=== PATIENT | female | born 1995 | race Caucasian/White ===

== ENCOUNTER 2016-04-28 08:34 | Emergency (ER) | payer OTHER ==
[~2016-04-28 08:34] MED LIST: ACET50TA PO; ANUS2.5C2 TOP; DOCU10ELUD PO; IBUP600T26 PO; MOM30SS PO; PRENTAB74 PO
[2016-04-28] MEDS ORDERED: ALBUTEROL 90 MCG/ACT 8GM HFA INHALER As Ordered ONE (08:48)
--- NOTE | 2016-04-28 09:06 | EDDOCDS ---
Nurse's Notes [facility] Name: Ankita Barlow Age: 20 yrs Sex: Female : 1995 Arrival Date: 04/28/2016 Time: 08:34 Bed I5 / M5 Private MD: Diagnosis: Acute upper respiratory infections of multiple and unspecified sites;Acute bronchitis Presentation: 04/28 08:38 Presenting complaint: Patient states: Sore throat with cough began two days ago. Adult mlb1 Sepsis Screening: The patient does not have new or worsening altered mentation. Patient's respiratory rate is less than 22. Systolic blood pressure is greater than 100. Patient has a qSOFA score of 0- Negative Sepsis Screen. Suicide/Homicide risk assessment- the patient denies having any suicidal and/or homicidal ideations and does not present with any other emotional, behavioral or mental health complaints. Status: Patient is not a relocation services specialist or dependent. Transition of care: patient was not received from another setting of care. 08:38 Acuity: SUZIE Level 4 mlb1 08:38 Method Of Arrival: Walkin/Carried/Asstd mlb1 Triage Assessment: 08:39 General: Appears in no apparent distress, Behavior is appropriate for age, cooperative. mlb1 Pain: Location: throat chest Pain currently is 4 out of 10 on a pain scale. HIV screening NA for this visit Offered previously. Respiratory: Reports cough that is persistent. 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 BCP Oral 1 tab once daily - PMHx: Asthma; - PSHx: none; - Social history: Smoking status: Patient uses tobacco products, light tobacco smoker. No barriers to communication noted, The patient speaks fluent Tunisian, Speaks appropriately for age. - Family history: Not pertinent. - : The pt / caregiver states he / she is not on anticoagulants. Home medication list is obtained from the patient. - Exposure Risk Screening:: None identified. Screenin:48 Screening information is obtained from the patient. Fall risk: No risks identified. ck1 Assistance ADL's: requires no assistance with activities of daily living. Abuse/DV Screen: The patient / caregiver reports he/she is: not in a situation that causes fear, pain or injury. Nutritional screening: No deficits noted. Advance Directives: Currently, there is no health care proxy. home support is adequate. Assessment: 08:48 General: Appears in no apparent distress, comfortable, Behavior is appropriate for age, ck1 cooperative. Pain: Location: chest Pain currently is 4 out of 10 on a pain scale. Aggravated by cough. Respiratory: Respiratory effort is unlabored, Respiratory pattern is regular, symmetrical. Derm: Skin is intact, is healthy with good turgor, Skin is pink, warm & dry. Musculoskeletal: Circulation, motion, and sensation intact Range of motion intact in all extremities. 09:05 Reassessment: Patient appears in no apparent distress at this time. Neurological: No ck1 deficits noted. Respiratory: Airway is patent Respiratory effort is unlabored, Respiratory pattern is regular, symmetrical. Derm: Skin is intact, is healthy with good turgor, Skin is pink, warm & dry. Vital Signs: 08:40 BP 151 / 87; Pulse 108; Resp 18; Temp 98.0(TE); Pulse Ox 99% on R/A; Weight 89.36 kg mlb1 (R); Height 5 ft. 2 in. (157.48 cm) (R); Pain 4/10; 08:40 Body Mass Index 36.03 (89.36 kg, 157.48 cm) mlb1 Vitals: 08:40 Log In Time: April 28, 2016 at 08:33. mlb1 08:53 Strep Screen is obtained and tested: Negative, a GATSNEG culture is ordered in [place] [address] and sent. ED Course: 08:35 Patient visited by Anderson Crump. mm15 08:35 Patient moved to Waiting mm15 08:37 Patient visited by Kalin Alaniz RN. mlb1 08:38 Triage Initiated mlb1 08:40 Noam Aden PA-C is PHCP. cc10 08:40 Michael Thompson MD is Attending Physician. cc10 08:40 Patient visited by Kalin Alaniz RN. mlb1 08:40 Patient moved to I5 / M5 mlb1 08:41 Patient visited by Noam Aden PA-C. cc10 08:41 Patient visited by Noam Aden PA-C. cc10 08:48 The patient / caregiver is instructed regarding the plan of care and ED course. ck1 08:48 No IV's were initiated during this patient's visit. No procedures done that require ck1 assistance. 08:55 GATS (NEGATIVE STREP SCREEN) Sent. ck1 Administered Medications: 08:53 Drug: Ventolin 2 puffs [Ventolin HFA 90 mcg/actuation aerosol inhaler (2 puffs)] Route: sd7 Inhalation; RT: 08:53 Initial MDI Given. Patient was instructed and evaluated on procedure Patient tolerated sd7 procedure well without adverse effect Spacer used Number of puffs given: 2. Order Results: There are currently no results for this order. Outcome: 09:00 Discharge ordered by Provider. cc10 09:05 Discharge Assessment: Patient awake, alert and oriented x 3. No cognitive and/or ck1 functional deficits noted. Patient verbalized understanding of disposition instructions. patient administered narcotics - no. The following High Risk Discharge criteria are identified: None. Discharged to home ambulatory. Condition: stable. Discharge instructions given to patient, Instructed on discharge instructions, follow up and referral plans. medication usage, Demonstrated understanding of instructions, medications, Pt was receptive of discharge instructions/ teaching. Prescriptions given X 1, Work note provided to patient. No special radiology studies were completed. Property :Personal belongings accompany Pt. 09:05 Patient left the ED. ck1 Signatures: Kalin Alaniz RN RN mlb1 Raina Tesfaye RN RN ck1 Anderson Crump mm15 Noam Aden, PA-C PA-C cc10 Veena Landin,RT RT sd7 MTDD
--- NOTE | 2016-04-28 09:06 | EDDOCDS ---
Physician Documentation [facility] Name: Ankita Barlow Age: 20 yrs Sex: Female : 1995 Arrival Date: 04/28/2016 Time: 08:34 Bed I5 / M5 Private MD: Disposition: 04/28/16 09:00 Discharged to Home/Self Care. Impression: Acute upper respiratory infections of multiple and unspecified sites, Acute bronchitis. - Condition is Stable. - Discharge Instructions: Acute Bronchitis, Upper Respiratory Infection, Adult. - Prescriptions for Prednisone 20 mg Oral Tablet - take 1 tablet by ORAL route once daily for 5 days; 5 tablet. - Medication Reconciliation, Work Release Form - 2 day form. - Follow up: Emergency Department; When: As needed; Reason: Worsening of conditions. Follow up: Private Physician; When: Call to arrange an appointment; Reason: Wound/Symptom Recheck, Recheck today's complaints, Worsening of conditions, Continuance of care. - Problem is new. - Symptoms have improved. - Notes: May use your Albuterol, 2 puffs every 4 hours as needed. Historical: - Allergies: Latex; peanut oil; - Home Meds: 1. BCP Oral 1 tab once daily - PMHx: Asthma; - PSHx: none; - Social history: Smoking status: Patient uses tobacco products, light tobacco smoker. No barriers to communication noted, The patient speaks fluent Jordanian, Speaks appropriately for age. - Family history: Not pertinent. - : The pt / caregiver states he / she is not on anticoagulants. Home medication list is obtained from the patient. - Exposure Risk Screening:: None identified. 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 2 in. (157.48 cm) (R); Pain 4/10; 08:40 Body Mass Index 36.03 (89.36 kg, 157.48 cm) mlb1 MDM: 08:45 Strep Screen, Nursing ordered. cc10 08:45 Call Respiratory ordered. cc10 08:45 MDI teaching with Spacer ordered. cc10 08:45 Ventolin Inhaler 2 puffs Inhalation once ordered. cc10 08:50 Call Respiratory complete. ck1 08:54 GATS (NEGATIVE STREP SCREEN) Ordered. EDMS 09:04 Financial registration complete. mm15 Administered Medications: 08:53 Drug: Ventolin 2 puffs [Ventolin HFA 90 mcg/actuation aerosol inhaler (2 puffs)] Route: sd7 Inhalation; Signatures: Dispatcher [employer] EDME Kalin Alaniz RN RN mlb1 Raina Tesfaye RN RN ck1 Anderson Crump mm15 Noam Aden PA-C PA-Luis Eduardo cc10 [facility] sd[facility] MTDD
--- NOTE | 2016-04-30 10:07 | EDDOCDS ---
Physician Documentation [facility] Name: Ankita Barlow Age: 20 yrs Sex: Female : 1995 Arrival Date: 04/28/2016 Time: 08:34 Bed I5 / M5 Private MD: Disposition: 04/28/16 09:00 Discharged to Home/Self Care. Impression: Acute upper respiratory infections of multiple and unspecified sites, Acute bronchitis. - Condition is Stable. - Discharge Instructions: Acute Bronchitis, Upper Respiratory Infection, Adult. - Prescriptions for Prednisone 20 mg Oral Tablet - take 1 tablet by ORAL route once daily for 5 days; 5 tablet. - Medication Reconciliation, Work Release Form - 2 day form. - Follow up: Emergency Department; When: As needed; Reason: Worsening of conditions. Follow up: Private Physician; When: Call to arrange an appointment; Reason: Wound/Symptom Recheck, Recheck today's complaints, Worsening of conditions, Continuance of care. - Problem is new. - Symptoms have improved. - Notes: May use your Albuterol, 2 puffs every 4 hours as needed. Historical: - Allergies: Latex; peanut oil; - Home Meds: 1. BCP Oral 1 tab once daily - PMHx: Asthma; - PSHx: none; - Social history: Smoking status: Patient uses tobacco products, light tobacco smoker. No barriers to communication noted, The patient speaks fluent Ecuadorean, Speaks appropriately for age. - Family history: Not pertinent. - : The pt / caregiver states he / she is not on anticoagulants. Home medication list is obtained from the patient. - Exposure Risk Screening:: None identified. 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 2 in. (157.48 cm) (R); Pain 4/10; 08:40 Body Mass Index 36.03 (89.36 kg, 157.48 cm) mlb1 MDM: 08:45 Strep Screen, Nursing ordered. cc10 08:45 Call Respiratory ordered. cc10 08:45 MDI teaching with Spacer ordered. cc10 08:45 Ventolin Inhaler 2 puffs Inhalation once ordered. cc10 08:50 Call Respiratory complete. ck1 08:54 GATS (NEGATIVE STREP SCREEN) Ordered. EDMS 09:04 Financial registration complete. mm15 09:06 [facility] Payment Agreement was scanned into [employer] and attached to record. mm15 14:01 T-Sheet-- Draft Copy was scanned into [employer] and attached to record. gb Administered Medications: 08:53 Drug: Ventolin 2 puffs [Ventolin HFA 90 mcg/actuation aerosol inhaler (2 puffs)] Route: sd7 Inhalation; Signatures: Dispatcher [employer] EDMS Yajaira Lopez, Reg Reg gb Kalin Alaniz RN RN mlb1 Raina Tesfaye RN RN ck1 Anderson Crump mm15 Noam Aden, PA-C PA-C cc10 Veena Landin RT sd7 The chart was reviewed and I authenticate all verbal orders and agree with the evaluation and treatment provided.Attachments: 09:06 [facility] Payment Agreement mm15 14:01 T-Sheet-- Draft Copy gb Chart Complete MTDD
--- NOTE | 2016-04-30 10:07 | EDDOCDS ---
Physician Documentation [facility] Name: Ankita Barlow Age: 20 yrs Sex: Female : 1995 Arrival Date: 04/28/2016 Time: 08:34 Bed I5 / M5 Private MD: Disposition: 04/28/16 09:00 Discharged to Home/Self Care. Impression: Acute upper respiratory infections of multiple and unspecified sites, Acute bronchitis. - Condition is Stable. - Discharge Instructions: Acute Bronchitis, Upper Respiratory Infection, Adult. - Prescriptions for Prednisone 20 mg Oral Tablet - take 1 tablet by ORAL route once daily for 5 days; 5 tablet. - Medication Reconciliation, Work Release Form - 2 day form. - Follow up: Emergency Department; When: As needed; Reason: Worsening of conditions. Follow up: Private Physician; When: Call to arrange an appointment; Reason: Wound/Symptom Recheck, Recheck today's complaints, Worsening of conditions, Continuance of care. - Problem is new. - Symptoms have improved. - Notes: May use your Albuterol, 2 puffs every 4 hours as needed. Historical: - Allergies: Latex; peanut oil; - Home Meds: 1. BCP Oral 1 tab once daily - PMHx: Asthma; - PSHx: none; - Social history: Smoking status: Patient uses tobacco products, light tobacco smoker. No barriers to communication noted, The patient speaks fluent Nigerian, Speaks appropriately for age. - Family history: Not pertinent. - : The pt / caregiver states he / she is not on anticoagulants. Home medication list is obtained from the patient. - Exposure Risk Screening:: None identified. 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 2 in. (157.48 cm) (R); Pain 4/10; 08:40 Body Mass Index 36.03 (89.36 kg, 157.48 cm) mlb1 MDM: 08:45 Strep Screen, Nursing ordered. cc10 08:45 Call Respiratory ordered. cc10 08:45 MDI teaching with Spacer ordered. cc10 08:45 Ventolin Inhaler 2 puffs Inhalation once ordered. cc10 08:50 Call Respiratory complete. ck1 08:54 GATS (NEGATIVE STREP SCREEN) Ordered. EDMS 09:04 Financial registration complete. mm15 09:06 [facility] Payment Agreement was scanned into [employer] and attached to record. mm15 14:01 T-Sheet-- Draft Copy was scanned into [employer] and attached to record. gb Administered Medications: 08:53 Drug: Ventolin 2 puffs [Ventolin HFA 90 mcg/actuation aerosol inhaler (2 puffs)] Route: sd7 Inhalation; Signatures: Dispatcher [employer] EDMS Yajaira Lopez, Reg Reg gb Kalin Alaniz RN RN mlb1 Raina Tesfaye RN RN ck1 Anderson Crump mm15 Noam Aden, PA-C PA-C cc10 Veena Landin RT sd7 The chart was reviewed and I authenticate all verbal orders and agree with the evaluation and treatment provided.Attachments: 09:06 [facility] Payment Agreement mm15 14:01 T-Sheet-- Draft Copy gb Chart Complete MTDD
--- NOTE | 2016-04-30 10:07 | EDDOCDS ---
Nurse's Notes [facility] Name: Ankita Barlow Age: 20 yrs Sex: Female : 1995 Arrival Date: 04/28/2016 Time: 08:34 Bed I5 / M5 Private MD: Diagnosis: Acute upper respiratory infections of multiple and unspecified sites;Acute bronchitis Presentation: 04/28 08:38 Presenting complaint: Patient states: Sore throat with cough began two days ago. Adult mlb1 Sepsis Screening: The patient does not have new or worsening altered mentation. Patient's respiratory rate is less than 22. Systolic blood pressure is greater than 100. Patient has a qSOFA score of 0- Negative Sepsis Screen. Suicide/Homicide risk assessment- the patient denies having any suicidal and/or homicidal ideations and does not present with any other emotional, behavioral or mental health complaints. Status: Patient is not a home service consultant or dependent. Transition of care: patient was not received from another setting of care. 08:38 Acuity: SUZIE Level 4 mlb1 08:38 Method Of Arrival: Walkin/Carried/Asstd mlb1 Triage Assessment: 08:39 General: Appears in no apparent distress, Behavior is appropriate for age, cooperative. mlb1 Pain: Location: throat chest Pain currently is 4 out of 10 on a pain scale. HIV screening NA for this visit Offered previously. Respiratory: Reports cough that is persistent. 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 BCP Oral 1 tab once daily - PMHx: Asthma; - PSHx: none; - Social history: Smoking status: Patient uses tobacco products, light tobacco smoker. No barriers to communication noted, The patient speaks fluent Barbadian, Speaks appropriately for age. - Family history: Not pertinent. - : The pt / caregiver states he / she is not on anticoagulants. Home medication list is obtained from the patient. - Exposure Risk Screening:: None identified. Screenin:48 Screening information is obtained from the patient. Fall risk: No risks identified. ck1 Assistance ADL's: requires no assistance with activities of daily living. Abuse/DV Screen: The patient / caregiver reports he/she is: not in a situation that causes fear, pain or injury. Nutritional screening: No deficits noted. Advance Directives: Currently, there is no health care proxy. home support is adequate. Assessment: 08:48 General: Appears in no apparent distress, comfortable, Behavior is appropriate for age, ck1 cooperative. Pain: Location: chest Pain currently is 4 out of 10 on a pain scale. Aggravated by cough. Respiratory: Respiratory effort is unlabored, Respiratory pattern is regular, symmetrical. Derm: Skin is intact, is healthy with good turgor, Skin is pink, warm & dry. Musculoskeletal: Circulation, motion, and sensation intact Range of motion intact in all extremities. 09:05 Reassessment: Patient appears in no apparent distress at this time. Neurological: No ck1 deficits noted. Respiratory: Airway is patent Respiratory effort is unlabored, Respiratory pattern is regular, symmetrical. Derm: Skin is intact, is healthy with good turgor, Skin is pink, warm & dry. Vital Signs: 08:40 BP 151 / 87; Pulse 108; Resp 18; Temp 98.0(TE); Pulse Ox 99% on R/A; Weight 89.36 kg mlb1 (R); Height 5 ft. 2 in. (157.48 cm) (R); Pain 4/10; 08:40 Body Mass Index 36.03 (89.36 kg, 157.48 cm) mlb1 Vitals: 08:40 Log In Time: April 28, 2016 at 08:33. mlb1 08:53 Strep Screen is obtained and tested: Negative, a GATSNEG culture is ordered in [place] [address] and sent. ED Course: 08:35 Patient visited by Anderson Crump. mm15 08:35 Patient moved to Waiting mm15 08:37 Patient visited by Kalin Alaniz RN. mlb1 08:38 Triage Initiated mlb1 08:40 Noam Aden PA-C is PHCP. cc10 08:40 Michael Thompson MD is Attending Physician. cc10 08:40 Patient visited by Kalin Alaniz RN. mlb1 08:40 Patient moved to I5 / M5 mlb1 08:41 Patient visited by Noam Aden PA-C. cc10 08:41 Patient visited by Noam Aden PA-C. cc10 08:48 The patient / caregiver is instructed regarding the plan of care and ED course. ck1 08:48 No IV's were initiated during this patient's visit. No procedures done that require ck1 assistance. 08:55 GATS (NEGATIVE STREP SCREEN) Sent. ck1 09:06 [facility] Payment Agreement was scanned into [employer] and attached to record. mm15 14:01 T-Sheet-- Draft Copy was scanned into [employer] and attached to record. gb Administered Medications: 08:53 Drug: Ventolin 2 puffs [Ventolin HFA 90 mcg/actuation aerosol inhaler (2 puffs)] Route: sd7 Inhalation; RT: 08:53 Initial MDI Given. Patient was instructed and evaluated on procedure Patient tolerated sd7 procedure well without adverse effect Spacer used Number of puffs given: 2. Order Results: Lab Order: GATS (NEGATIVE STREP SCREEN); SPEC'M 04/28/16 08:50 Test: GATS CULTURE (NEG STREP SCR); Value: GATS RESULT NEGATIVE FOR STREP PYOGENES (GROUP A); Status: F Test: GATS CULTURE (NEG STREP SCR); Value: ORGANISM 1: STREP AGALACTIAE GROUP B; Status: F Test: GATS CULTURE (NEG STREP SCR); Value: STREP AGALACTIAE GROUP B; Status: F Test: GATS CULTURE (NEG STREP SCR); Value: QUANTITY OF GROWTH HEAVY; Status: F Outcome: 09:00 Discharge ordered by Provider. cc10 09:05 Discharge Assessment: Patient awake, alert and oriented x 3. No cognitive and/or ck1 functional deficits noted. Patient verbalized understanding of disposition instructions. patient administered narcotics - no. The following High Risk Discharge criteria are identified: None. Discharged to home ambulatory. Condition: stable. Discharge instructions given to patient, Instructed on discharge instructions, follow up and referral plans. medication usage, Demonstrated understanding of instructions, medications, Pt was receptive of discharge instructions/ teaching. Prescriptions given X 1, Work note provided to patient. No special radiology studies were completed. Property :Personal belongings accompany Pt. 09:05 Patient left the ED. ck1 Signatures: Yajaira Lopez, Reg Reg gb Kalin Alaniz, RN RN mlb1 Raina Tesfaye RN RN ck1 Anderson Crump mm15 Noam Aden, PA-C PA-C cc10 Veena Landin,RT RT sd7 Chart Complete MTDD
== END 2016-04-28 09:05 | disposition home or self-care (01) ==
LOC: M ED 08:34
DX: J06.9 Acute upper respiratory infection, unspecified (principal); J20.9 Acute bronchitis, unspecified; J45.909 Unspecified asthma, uncomplicated; Z72.0 Tobacco use; Z79.3 Long term (current) use of hormonal contraceptives; Z91.040 Latex allergy status; Z91.010 Allergy to peanuts

== ENCOUNTER 2016-06-19 03:47 | Emergency (ER) | payer OTHER ==
[~2016-06-19] VITALS: Ht 157.5 cm; Wt 90.7 kg
[2016-06-19] MEDS ORDERED: ACETAMINOPH W/CODEINE #3 TAB UD PO ONE (04:15)
[2016-06-19] MEDS ORDERED: AUGMENTIN 875 MG TAB PO ONE (05:30)
[2016-06-19] MEDS ORDERED: AMOX500T2 PO (05:39)
[2016-06-19] MEDS ORDERED: ACET30TAB PO (05:39)
[2016-06-19 05:50] VITALS: BP 134/84
== END 2016-06-19 05:53 | disposition home or self-care (01) ==
LOC: M ED 04:29
DX: H66.92 Otitis media, unspecified, left ear (principal); Z91.018 Allergy to other foods; Z91.040 Latex allergy status; Z91.02 Food additives allergy status; Z79.899 Other long term (current) drug therapy

== ENCOUNTER 2016-09-13 17:21 | Emergency (ER) | payer OTHER ==
[~2016-09-13] VITALS: Ht 157.5 cm; Wt 95.3 kg
[~2016-09-13 17:21] MED LIST changes: +ACET30TAB PO; +AMOX500T2 PO
[2016-09-13] MEDS ORDERED: IPRATROPIUM 0.5MG/ALBUTEROL 2.5MG INH SOL UD 3ML (DUONEB)(J7620) NEB ONE (18:00)
[2016-09-13] MEDS ORDERED: ALBUTEROL SULFATE 2.5 MG/0.5 ML INH NEB SOLN INH ONE (18:00)
[2016-09-13] MEDS ORDERED: predniSONE 20 MG TAB PO ONE (18:00)
[2016-09-13] MEDS ORDERED: TUSSICAPS ER 10/8MG CAPSULE PO ONE (18:15)
--- NOTE | 2016-09-13 18:45 | REP ---
Clinical: Shortness of breath . Comparison: 12/21/2014 . Technique: PA and lateral. Findings: The mediastinum and cardiac silhouette are normal. The lung camilo are clear and without acute consolidation, effusion, or pneumothorax. The skeletal structures are intact and normal. Impression: 1. No acute cardiopulmonary process. Signed by Adriel Titus MD 09/13/2016 06:37 P
[2016-09-13] MEDS ORDERED: ALBU17IN INH (19:12)
[2016-09-13] MEDS ORDERED: PRED20TA PO (19:12)
[2016-09-13] MEDS ORDERED: [UNRECOGNIZED DRUG - OTHER] PO (19:12)
[2016-09-13] MEDS ORDERED: ALBUTEROL 90 MCG/ACT 8GM HFA INHALER INH ONE (19:15)
[2016-09-13 19:20] VITALS: BP 153/71
== END 2016-09-13 19:25 | disposition home or self-care (01) ==
LOC: M ED 18:14
DX: J45.901 Unspecified asthma with (acute) exacerbation (principal); Z91.040 Latex allergy status; Z91.018 Allergy to other foods

== ENCOUNTER → 2016-10-11 | Outpatient (CLI) | payer OTHER ==
[~2016-10-11] MED LIST changes: +ALBU17IN INH; +PRED20TA PO; +[UNRECOGNIZED DRUG - OTHER] PO
[2016-10-11 11:31] LABS: ALBUMIN/GLOBULIN RATIO 1.08 (1.00-1.93); ALKALINE PHOSPHATASE 72 U/L (45-117); ALT/SGPT 37 U/L (12-78); ANION GAP 7 MEQ/L (8-16); AST/SGOT 16 U/L (15-37); BILIRUBIN,TOTAL 0.9 MG/DL (0.2-1.0); BLOOD UREA NITROGEN 10 MG/DL (7-18); CALCIUM LEVEL 9.3 MG/DL (8.5-10.1); CARBON DIOXIDE LEVEL 27 MEQ/L (21-32); CHLORIDE LEVEL 108 MEQ/L (98-107); CHOLESTEROL LEVEL 205 MG/DL (<200); CREATININE FOR GFR 0.95 MG/DL (0.55-1.02); GLOMERULAR FILTRATION RATE > 60.0 (>60); GLUCOSE, FASTING 71 MG/DL (70-105); SODIUM LEVEL 142 MEQ/L (136-145); TOTAL PROTEIN 7.7 GM/DL (6.4-8.2); TRIGLYCERIDES LEVEL 172 MG/DL (<150)
== END ==
LOC: M LAB 10:01
PROVIDERS: ATTEND Family Medicine Addiction Medicine
DX: Z00.01 Encounter for general adult medical examination with abnormal findings (principal)

== ENCOUNTER → 2017-01-18 | Outpatient (REF) | payer OTHER ==
[~2017-01-18] MED LIST changes: +BCP PO; +ZOFR4TAB3 PO
[2017-01-18 14:40] LABS: BASO # 0.1 10^3/uL (0.0-0.2); BASO % 0.9 % (0.0-1.0); EOS # 0.6 10^3/uL (0.0-0.50); EOS % 5.9 % (0.0-3.0); IMMATURE GRANULOCYTE % 0.2 % (0-0); LYMPH # 3.9 10^3/uL (1.5-6.5); LYMPH % 38.1 % (24.0-44.0); MEAN CORPUSCULAR HEMOGLOBIN 30.6 pg (27.0-33.0); MEAN CORPUSCULAR HGB CONC 33.3 g/dl (32.0-36.5); MEAN CORPUSCULAR VOLUME 92.1 fl (80.0-96.0); MONO # 0.7 10^3/uL (0.0-0.8); MONO % 6.7 % (0.0-5.0); NEUTROPHILS # 4.9 10^3/uL (1.8-7.7); NEUTROPHILS % 48.2 % (36.0-66.0); PLATELET COUNT, AUTOMATED 336 10^3/uL (150-450); RED CELL DISTRIBUTION WIDTH 12.2 % (11.5-14.5); WHITE BLOOD COUNT 10.2 10^3/uL (4.0-10.0)
[2017-01-18 14:43] LABS: ADD MORPHOLOGY? NO
[2017-01-18 15:46] LABS: ALBUMIN/GLOBULIN RATIO 1.18 (1.00-1.93); ALKALINE PHOSPHATASE 63 U/L (45-117); ALT/SGPT 33 U/L (12-78); ANION GAP 8 MEQ/L (8-16); AST/SGOT 14 U/L (15-37); BILIRUBIN,TOTAL 0.7 MG/DL (0.2-1.0); BLOOD UREA NITROGEN 10 MG/DL (7-18); CALCIUM LEVEL 9.2 MG/DL (8.5-10.1); CARBON DIOXIDE LEVEL 24 MEQ/L (21-32); CHLORIDE LEVEL 109 MEQ/L (98-107); CREATININE FOR GFR 0.89 MG/DL (0.55-1.02); GLOMERULAR FILTRATION RATE > 60.0 (>60); GLUCOSE, FASTING 82 MG/DL (70-105); POTASSIUM SERUM 4.1 MEQ/L (3.5-5.1); SODIUM LEVEL 141 MEQ/L (136-145); TOTAL PROTEIN 7.4 GM/DL (6.4-8.2)
== END ==
LOC: M LAB REF 11:55
PROVIDERS: ATTEND Family Medicine Addiction Medicine
DX: R19.7 Diarrhea, unspecified (principal)

== ENCOUNTER 2017-01-20 11:08 | Emergency (ER) | payer OTHER ==
[~2017-01-20] VITALS: Ht 157.5 cm; Wt 92.7 kg
[~2017-01-20 11:08] MED LIST changes: -BCP PO; -ZOFR4TAB3 PO
[2017-01-20] MEDS ORDERED: BCP PO (11:23)
[2017-01-20] MEDS ORDERED: ONDANSETRON 4MG/2ML VIAL (J2405) IV ONE (14:00)
[2017-01-20] MEDS ORDERED: MORPHINE 2 MG/ML 1ML SYRINGE IV PRN (14:00)
[2017-01-20] MEDS ORDERED: NS 1,000 ML IV ONE (14:00)
[2017-01-20 14:21] LABS: MEAN CORPUSCULAR HEMOGLOBIN 31.3 pg (27.0-33.0); MEAN CORPUSCULAR VOLUME 91.9 fl (80.0-96.0); PLATELET COUNT, AUTOMATED 383 10^3/uL (150-450); RED CELL DISTRIBUTION WIDTH 12.1 % (11.5-14.5); WHITE BLOOD COUNT 13.1 10^3/uL (4.0-10.0)
[2017-01-20 14:22] LABS: ADD MANUAL DIFFER YES; DIFF SLIDE NUMBER 288
[2017-01-20 14:45] LABS: ALBUMIN 4.1 GM/DL (3.2-5.2); ALBUMIN/GLOBULIN RATIO 0.93 (1.00-1.93); ALKALINE PHOSPHATASE 68 U/L (45-117); ALT/SGPT 41 U/L (12-78); AMYLASE 49 U/L (25-115); ANION GAP 7 MEQ/L (8-16); AST/SGOT 20 U/L (15-37); BILIRUBIN,DIRECT 0.2 MG/DL (0.0-0.2); BILIRUBIN,TOTAL 0.9 MG/DL (0.2-1.0); BLOOD UREA NITROGEN 8 MG/DL (7-18); CALCIUM LEVEL 9.2 MG/DL (8.5-10.1); CARBON DIOXIDE LEVEL 25 MEQ/L (21-32); CHLORIDE LEVEL 109 MEQ/L (98-107); CREATININE FOR GFR 0.97 MG/DL (0.55-1.02); GLOMERULAR FILTRATION RATE > 60.0 (>60); GLUCOSE, FASTING 76 MG/DL (70-105); POTASSIUM SERUM 3.7 MEQ/L (3.5-5.1); SODIUM LEVEL 141 MEQ/L (136-145); TOTAL PROTEIN 8.5 GM/DL (6.4-8.2)
[2017-01-20 14:46] LABS: BASOPHILS 2 % (0-4); EOSINOPHILS 3 % (0-5)
[2017-01-20] MEDS ORDERED: ISOVUE-370 76% 100ML VIAL (Q9967) As Ordered ONE (14:46)
--- NOTE | 2017-01-20 15:47 | REP ---
CT of the abdomen and pelvis with IV and oral contrast: Comparison is a 2015. The visualized lung camilo are unremarkable. The hepatic parenchyma is homogeneous. The gallbladder, pancreas and spleen are normal size and unremarkable. The adrenals and kidneys are unremarkable. There is no hydronephrosis. The abdominal aorta, bowel and mesentery are unremarkable. Pelvis: The appendix is unremarkable. The uterus, adnexa and urinary bladder are unremarkable. There is no ascites or adenopathy. The pelvic bowel loops are unremarkable. Impression: Essentially negative CT study of the abdomen and pelvis. There is no change from the prior study. Signed by Rigoberto Flowers MD 01/20/2017 03:38 P
[2017-01-20] MEDS ORDERED: ZOFR4TAB3 PO (16:03)
[2017-01-20 16:08] VITALS: BP 136/78
== END 2017-01-20 16:10 | disposition home or self-care (01) ==
LOC: M ED 11:08
DX: A09 Infectious gastroenteritis and colitis, unspecified (principal); J45.909 Unspecified asthma, uncomplicated; F17.200 Nicotine dependence, unspecified, uncomplicated; Z79.3 Long term (current) use of hormonal contraceptives; Z91.040 Latex allergy status; Z91.018 Allergy to other foods
CPT/HCPCS: 74177; 80048; 80076; 81001; 81025; 82150; 83690; 85025; 96374; 96375; 99283; J2405; Q9967

== ENCOUNTER → 2017-02-01 | Outpatient (REF) | payer OTHER ==
[~2017-02-01] MED LIST changes: +BCP PO; +ZOFR4TAB3 PO
== END ==
LOC: M LAB REF 11:50
PROVIDERS: ATTEND Family Medicine Addiction Medicine
DX: R19.7 Diarrhea, unspecified (principal)

== ENCOUNTER 2017-04-03 19:52 | Emergency (ER) | payer OTHER ==
[~2017-04-03] VITALS: Ht 160 cm; Wt 93.2 kg
[2017-04-03] MEDS ORDERED: AMLO5TAB2 PO (20:06)
[2017-04-03] MEDS ORDERED: AUGM875T28 PO (21:26)
[2017-04-03 21:32] VITALS: BP 147/68
== END 2017-04-03 21:36 | disposition home or self-care (01) ==
LOC: M ED 19:52
DX: J02.9 Acute pharyngitis, unspecified (principal); J01.00 Acute maxillary sinusitis, unspecified; I10 Essential (primary) hypertension; J45.909 Unspecified asthma, uncomplicated; F17.200 Nicotine dependence, unspecified, uncomplicated; Z79.3 Long term (current) use of hormonal contraceptives; Z79.899 Other long term (current) drug therapy; Z91.040 Latex allergy status; Z91.018 Allergy to other foods

== ENCOUNTER 2017-05-25 10:44 | Emergency (ER) | payer OTHER ==
[2017-05-25] MEDS: predniSONE 20 MG TAB PO (11:20)
[2017-05-25] MEDS: ACETAMINOPHEN 325 MG TAB PO (11:21)
[2017-05-25] MEDS: IPRATROPIUM 0.5MG/ALBUTEROL 2.5MG INH SOL UD 3ML (DUONEB)(J7620) NEB (11:43)
== END 2017-05-25 12:14 | disposition home or self-care (01) ==
LOC: M ED 10:44
DX: J45.901 Unspecified asthma with (acute) exacerbation (principal); J20.9 Acute bronchitis, unspecified; J06.9 Acute upper respiratory infection, unspecified; F17.200 Nicotine dependence, unspecified, uncomplicated; Z79.3 Long term (current) use of hormonal contraceptives; Z79.899 Other long term (current) drug therapy; Z91.040 Latex allergy status; Z91.018 Allergy to other foods
CPT/HCPCS: 94640

== ENCOUNTER → 2017-06-01 | Outpatient (REF) | payer OTHER | LOC: M LAB REF 11:54 | DX: R19.7 Diarrhea, unspecified (principal) ==

== ENCOUNTER 2017-06-06 11:53 | Day surgery (SDC) | payer OTHER ==
[2017-06-06] MEDS: NS 1,000 ML IV (12:30)
[2017-06-06] MEDS ORDERED: PROPOFOL 200 MG/20 ML VIAL As Ordered (12:35)
[2017-06-06] MEDS ORDERED: LIDOCAINE 2% INJ 100 MG/5 ML SDV (FOR ANES.) As Ordered (12:35)
== END 2017-06-06 14:11 | disposition home or self-care (01) ==
LOC: M OPP 11:53
DX: R19.7 Diarrhea, unspecified (principal); K92.1 Melena; K63.89 Other specified diseases of intestine; I10 Essential (primary) hypertension; R12 Heartburn; K21.9 Gastro-esophageal reflux disease without esophagitis; J45.909 Unspecified asthma, uncomplicated; R06.83 Snoring; F17.210 Nicotine dependence, cigarettes, uncomplicated; Z91.018 Allergy to other foods; Z91.010 Allergy to peanuts; Z91.040 Latex allergy status; Z79.899 Other long term (current) drug therapy; Z80.8 Family history of malignant neoplasm of other organs or systems; Z80.0 Family history of malignant neoplasm of digestive organs; Z80.3 Family history of malignant neoplasm of breast; Z80.41 Family history of malignant neoplasm of ovary
CPT/HCPCS: 45380

== ENCOUNTER → 2017-06-21 | Outpatient (CLI) | payer OTHER ==
[2017-06-21 16:49] LABS: PROLACTIN 8.8 NG/ML
== END ==
LOC: M LAB 15:46
DX: N64.4 Mastodynia (principal); N64.52 Nipple discharge
CPT/HCPCS: 84146

== ENCOUNTER → 2017-07-07 | Outpatient (CLI) | payer OTHER | LOC: M RAD 16:31 | DX: N64.4 Mastodynia (principal); N64.52 Nipple discharge; Z53.9 Procedure and treatment not carried out, unspecified reason ==

== ENCOUNTER → 2017-07-14 | Outpatient (CLI) | payer OTHER ==
[2017-07-14 18:48] LABS: HCG, SERUM QUANTITATIVE < 1.0 MIU/ML
== END ==
LOC: M LAB 17:13
DX: N64.52 Nipple discharge (principal)

== ENCOUNTER → 2017-07-15 | Outpatient (CLI) | payer OTHER | LOC: M RAD 14:14 | DX: N64.4 Mastodynia (principal); N64.52 Nipple discharge | CPT/HCPCS: 76642 ==

== ENCOUNTER 2017-11-05 18:51 | Emergency (ER) | payer OTHER | END 2017-11-05 19:46 | disposition home or self-care (01) | LOC: M ED 18:51 | DX: J30.9 Allergic rhinitis, unspecified (principal); I10 Essential (primary) hypertension; F17.210 Nicotine dependence, cigarettes, uncomplicated; Z91.040 Latex allergy status; Z91.010 Allergy to peanuts; Z91.018 Allergy to other foods; Z79.899 Other long term (current) drug therapy | CPT/HCPCS: 87880 ==

== ENCOUNTER 2017-11-07 23:21 | Emergency (ER) | payer OTHER ==
[2017-11-08] MEDS: ERYTHROMYCIN OPHTH OINT OS (00:03)
== END 2017-11-08 00:27 | disposition home or self-care (01) ==
LOC: M ED 23:21
DX: H10.022 Other mucopurulent conjunctivitis, left eye (principal); H61.21 Impacted cerumen, right ear; I10 Essential (primary) hypertension; Z72.0 Tobacco use; Z79.899 Other long term (current) drug therapy; Z91.040 Latex allergy status; Z91.018 Allergy to other foods
CPT/HCPCS: 99282

== ENCOUNTER 2017-11-12 15:54 | Emergency (ER) | payer OTHER | END 2017-11-12 17:01 | disposition home or self-care (01) | LOC: M ED 15:54 | DX: H60.91 Unspecified otitis externa, right ear (principal); H66.93 Otitis media, unspecified, bilateral; J02.9 Acute pharyngitis, unspecified; I10 Essential (primary) hypertension; F17.200 Nicotine dependence, unspecified, uncomplicated; Z91.040 Latex allergy status; Z91.018 Allergy to other foods; Z91.010 Allergy to peanuts; Z79.899 Other long term (current) drug therapy; Z79.2 Long term (current) use of antibiotics; Z79.3 Long term (current) use of hormonal contraceptives | CPT/HCPCS: 99282 ==

== ENCOUNTER 2017-12-09 16:43 | Emergency (ER) | payer OTHER | END 2017-12-09 19:08 | disposition home or self-care (01) | LOC: M ED 16:43 | DX: J30.9 Allergic rhinitis, unspecified (principal); H65.93 Unspecified nonsuppurative otitis media, bilateral; H10.13 Acute atopic conjunctivitis, bilateral; I10 Essential (primary) hypertension; F17.200 Nicotine dependence, unspecified, uncomplicated | CPT/HCPCS: 99282 ==

== ENCOUNTER → 2018-02-28 | Outpatient (REF) | payer OTHER | LOC: M LAB REF 11:29 | DX: E02 Subclinical iodine-deficiency hypothyroidism (principal) ==

== ENCOUNTER 2018-04-26 14:26 | Emergency (ER) | payer OTHER ==
[~2018-04-26] VITALS: Ht 157.5 cm; Wt 97.8 kg
[~2018-04-26 14:26] MED LIST changes: +AMLO5TAB6 PO; +AMOX500C PO; +AUGM875T28 PO; +BENZ200C70 PO; +DEBR6.5S4 OTIC; +ERYTOIN8 OS; +FLON1SPR NARES; +JENC0.35 PO; +MUCI600T37 PO; +OFLOSO AD; +OLOP1OPD OP; +ZOFR4TAB14 PO; -ZOFR4TAB3 PO
[2018-04-26] MEDS ORDERED: HYDR25TAB (14:36)
[2018-04-26] MEDS ORDERED: NS 1,000 ML IV ONE (15:30)
[2018-04-26] MEDS ORDERED: MORPHINE 2 MG/ML 1ML SYRINGE (J2270) IV PRN (15:30)
[2018-04-26] MEDS ORDERED: ONDANSETRON 4MG/2ML VIAL (J2405) IV ONE (15:30)
[2018-04-26 15:45] LABS: BASO # 0.1 10^3/uL (0.0-0.2); BASO % 0.6 % (0.0-1.0); EOS # 0.5 10^3/uL (0.0-0.50); HEMATOCRIT 42.1 % (36.0-47.0); HEMOGLOBIN 14.6 g/dl (12.0-15.5); LYMPH # 4.2 10^3/uL (1.5-6.5); LYMPH % 26.6 % (24.0-44.0); MEAN CORPUSCULAR HEMOGLOBIN 30.5 pg (27.0-33.0); MEAN CORPUSCULAR HGB CONC 34.7 g/dl (32.0-36.5); MEAN CORPUSCULAR VOLUME 88.1 fl (80.0-96.0); MONO # 1.1 10^3/uL (0.0-0.8); MONO % 7.1 % (0.0-5.0); NEUTROPHILS # 9.8 10^3/uL (1.8-7.7); NEUTROPHILS % 62.3 % (36.0-66.0); PLATELET COUNT, AUTOMATED 362 10^3/uL (150-450); RED BLOOD COUNT 4.78 10^6/uL (4.00-5.40); WHITE BLOOD COUNT 15.8 10^3/uL (4.0-10.0)
--- NOTE | 2018-04-26 16:11 | REP ---
Urinary tract sonography: History: Left-sided flank pain. patient. Comparison sonography April 13, 2012 was normal. Sonographic findings: Scanning of the level urinary bladder shows no abnormality. Bladder lara are smooth. Renal cortical echogenicity pattern is normal and contours are smooth on both sides. The right kidney measures 12.0 by 6.1 x 3.9 cm. Left renal dimensions are 11.3 x 4.8 x 5.0 cm. No hydronephrosis seen on either side. No cyst, mass, or calculus seen. Impression: Normal urinary tracts sonography. No hydronephrosis seen. Electronically Signed by John Alston MD 04/26/2018 04:02 P
[2018-04-26 16:27] LABS: ALBUMIN 4.5 GM/DL (3.2-5.2); ALT/SGPT 24 U/L (12-78); BILIRUBIN,DIRECT 0.2 MG/DL (0.0-0.2); BILIRUBIN,TOTAL 0.6 MG/DL (0.2-1.0); BLOOD UREA NITROGEN 8 MG/DL (7-18); CALCIUM LEVEL 9.8 MG/DL (8.5-10.1); CARBON DIOXIDE LEVEL 26 MEQ/L (21-32); CHLORIDE LEVEL 105 MEQ/L (98-107); CREATININE FOR GFR 0.77 MG/DL (0.55-1.30); GLOMERULAR FILTRATION RATE > 60.0 (>60); GLUCOSE, FASTING 85 MG/DL (70-100); HCG, SERUM QUANTITATIVE 6130 MIU/ML; POTASSIUM SERUM 3.8 MEQ/L (3.5-5.1); SODIUM LEVEL 138 MEQ/L (136-145); TOTAL PROTEIN 7.9 GM/DL (6.4-8.2)
[2018-04-26 16:41] VITALS: BP 147/80
[2018-04-26] MEDS ORDERED: MACR100C43 PO (17:18)
== END 2018-04-26 16:46 | disposition home or self-care (01) ==
LOC: M ED 14:26
DX: N39.0 Urinary tract infection, site not specified (principal); I10 Essential (primary) hypertension
CPT/HCPCS: 36415; 76775; 80048; 80076; 81001; 84702; 85025; 87086; 96361; 96374; 96375; 99284; J2270; J2405

== ENCOUNTER → 2018-06-01 | Outpatient (CLI) | payer MEDICAID ==
[~2018-06-01] MED LIST changes: +HYDR25TAB; +MACR100C43 PO
[2018-06-01 10:32] LABS: BASO # 0.1 10^3/uL (0.0-0.2); BASO % 0.5 % (0.0-1.0); EOS # 0.4 10^3/uL (0.0-0.50); EOS % 2.8 % (0.0-3.0); HEMATOCRIT 37.7 % (36.0-47.0); HEMOGLOBIN 12.8 g/dl (12.0-15.5); LYMPH # 3.5 10^3/uL (1.5-6.5); LYMPH % 27.3 % (24.0-44.0); MEAN CORPUSCULAR HEMOGLOBIN 30.8 pg (27.0-33.0); MEAN CORPUSCULAR VOLUME 90.6 fl (80.0-96.0); MONO # 0.8 10^3/uL (0.0-0.8); MONO % 6.5 % (0.0-5.0); NEUTROPHILS # 7.9 10^3/uL (1.8-7.7); NEUTROPHILS % 62.6 % (36.0-66.0); PLATELET COUNT, AUTOMATED 288 10^3/uL (150-450); RED BLOOD COUNT 4.16 10^6/uL (4.00-5.40); WHITE BLOOD COUNT 12.7 10^3/uL (4.0-10.0)
[2018-06-01 10:47] LABS: CREATININE,RANDOM URINE 71.3 MG/DL; TOTAL PROTEIN,RANDOM URINE 7.7 MG/DL (0.0-12.0)
[2018-06-01 10:58] LABS: ALT/SGPT 36 U/L (12-78); BILIRUBIN,TOTAL 0.9 MG/DL (0.2-1.0); GLOMERULAR FILTRATION RATE > 60.0 (>60); LDH LACTATE DEHYDROGENASE 143 U/L (84-246); URIC ACID 3.5 MG/DL (2.6-6.0)
[2018-06-01 11:56] LABS: CHLAMYDIA DNA AMPLIFICATION NEGATIVE (NEGATIVE); GC DNA AMPLIFICATION NEGATIVE (NEGATIVE)
[2018-06-02 10:59] LABS: RUBELLA IgG QUALITATIVE IMMUNE (IMMUNE)
[2018-06-02 11:29] LABS: HEPATITIS C VIRUS ABY INDEX 0.1 INDEX (<0.8); HIV 1&2 SCREEN CENTAUR NEGATIVE (NEGATIVE)
== END ==
LOC: M LAB 09:41
PROVIDERS: ATTEND Advanced Practice Midwife
DX: O10.011 Pre-existing essential hypertension complicating pregnancy, first trimester (principal); Z3A.00 Weeks of gestation of pregnancy not specified

== ENCOUNTER → 2018-06-23 | Outpatient (CLI) | payer MEDICAID | LOC: M LAB 09:00 | PROVIDERS: ATTEND Advanced Practice Midwife | DX: O10.012 Pre-existing essential hypertension complicating pregnancy, second trimester (principal) ==

== ENCOUNTER → 2018-07-21 | Outpatient (CLI) | payer OTHER ==
[~2018-07-21] MED LIST changes: +ACET-716 PO; -ACET30TAB PO; -ACET50TA PO; -DOCU10ELUD PO; +DOCU5LIQ PO; +MAPA500T17 PO; -OLOP1OPD OP; +PATA2.5S OP
--- NOTE | 2018-07-21 13:59 | REP ---
OB ULTRASOUND: Real-time sonographic evaluation of the gravid uterus performed. There is a single intrauterine gestation with an estimated gestational age 18 weeks, EDC 12/22/2018. Today's measurements indicate appropriate growth. Biometry and Growth: BPD 43 mm = 18 weeks 6 days, 74th percentile HC 153 mm = 18 weeks 2 days, 60th percentile AC 136 mm = 19 weeks 0 days, 72nd percentile FL 26 mm = 18 weeks 0 days, 40th percentile HC/AC ratio 1.13 within normal range. Estimated weight 244 grams, 67th percentile. SEEN/GROSSLY UNREMARKABLE Lateral ventricles Yes Posterior fossa Yes Upper lip Yes Four-chamber heart Yes LVOT Yes RVOT Yes Stomach Yes Cord insertion Yes Three vessel cord Yes Kidneys No Bladder Yes Spine No Cervical length: Closed and measures 3.9 cm in length. heart rate: 136 beats per minute. position: Vertex. Placenta: Anterior and grade 0 with no previa or abruption. Amniotic fluid: Within normal limits. Electronically Signed by Rigoberto Navarrete MD 07/21/2018 04:22 P
== END ==
LOC: M RAD 11:50
PROVIDERS: ATTEND Advanced Practice Midwife
DX: O10.012 Pre-existing essential hypertension complicating pregnancy, second trimester (principal); Z3A.18 18 weeks gestation of pregnancy

== ENCOUNTER → 2018-08-23 | Outpatient (CLI) | payer OTHER ==
--- NOTE | 2018-08-23 19:53 | REP ---
Clinical: Anatomical evaluation. Comparison: 07/21/2018 . Findings: Examination demonstrates a single live intrauterine in cephalic presentation. motion is identified by technologist. Placenta is noted anterior and grade air grade zero without evidence for placenta previa or abruption. Amniotic fluid volume is normal. Cervix measures 5.2 cm in length and appears closed. No evidence for nuchal cord. Gestational age by LMP 22 weeks 5 days with ZULEYMA 12/22/2018 . Gestational age by current measurements 24 weeks 1 day with ZULEYMA 12/12/2018 . FHR equals 144 beats per minute. Estimated weight see 649 grams ( 88th percentile). Anatomical assessment demonstrates normal structures including cranium, choroid plexus, cavum, cerebellum/posterior fossa, diaphragm, stomach, cord insertion/three-vessel cord, kidneys/bladder, spine, and extremities. Impression: 1. Single live intrauterine in cephalic presentation demonstrating appropriate estimated weight. 2. In conjunction with prior examination anatomical assessment is complete and normal. No gross abnormalities are identified. Electronically Signed by Adriel Titus MD 08/23/2018 07:44 P
== END ==
LOC: M RAD 16:24
PROVIDERS: ATTEND Advanced Practice Midwife
DX: O10.012 Pre-existing essential hypertension complicating pregnancy, second trimester (principal); Z3A.24 24 weeks gestation of pregnancy

== ENCOUNTER → 2018-09-15 | Outpatient (CLI) | payer OTHER ==
[2018-09-15 10:26] LABS: HEMATOCRIT 32.7 % (36.0-47.0); HEMOGLOBIN 11.1 g/dl (12.0-15.5); MEAN CORPUSCULAR HEMOGLOBIN 32.6 pg (27.0-33.0); MEAN CORPUSCULAR HGB CONC 33.9 g/dl (32.0-36.5); MEAN CORPUSCULAR VOLUME 95.9 fl (80.0-96.0); PLATELET COUNT, AUTOMATED 343 10^3/uL (150-450); RED BLOOD COUNT 3.41 10^6/uL (4.00-5.40); WHITE BLOOD COUNT 15.3 10^3/uL (4.0-10.0)
== END ==
LOC: M SMT 09:03
PROVIDERS: ATTEND Advanced Practice Midwife
DX: O10.012 Pre-existing essential hypertension complicating pregnancy, second trimester (principal)

== ENCOUNTER 2018-09-17 00:48 | Outpatient (CLI) | payer OTHER ==
[~2018-09-17] VITALS: Ht 157.5 cm; Wt 97.1 kg
[2018-09-17 01:02] VITALS: BP 121/63
[2018-09-17 02:39] VITALS: BP 127/80
== END 2018-09-17 02:40 | disposition home or self-care (01) ==
LOC: M LDO 00:48
PROVIDERS: ATTEND Obstetrics & Gynecology
DX: O36.8120 Decreased fetal movements, second trimester, not applicable or unspecified (principal); Z3A.26 26 weeks gestation of pregnancy

== ENCOUNTER → 2018-09-21 | Outpatient (CLI) | payer OTHER | LOC: M LAB 07:56 | PROVIDERS: ATTEND Obstetrics & Gynecology | DX: R73.02 Impaired glucose tolerance (oral) (principal) ==

== ENCOUNTER → 2018-09-29 | Outpatient (CLI) | payer OTHER ==
--- NOTE | 2018-09-29 12:03 | REP ---
OBSTETRIC SONOGRAPHY: HISTORY: Supervision of growth study. FINDINGS: Scanning through the gravid uterus demonstrates a viable single intrauterine gestation in a cephalic lie. motion is observed. heart rate is recorded at 140 beats per minute. A grade 1 anterior placenta is seen without evidence of previa. Amniotic fluid is subjectively normal. Closed cervical length is measured at 4.3 cm, viewed transabdominally. No extrauterine abnormalities observed. There has been appropriate interval growth. The following anatomic structures are again identified and felt to be unremarkable: cranium, cavum, cerebellum and posterior fossa, lungs, four-chamber heart, diaphragm, left-sided stomach, three-vessel cord, kidneys and bladder, spine. Biometry Chart: BPD 7.6 cm = 30 weeks 2 days HC 26.9 cm = 29 weeks 2 days AC 25.7 cm = 29-week 6 days FL 5.8 cm = 30 weeks 1 day HL 4.9 cm = 28 weeks 5 days HC/AC ratio normal 1.05. Cephalic index normal 0.80. Estimated weight 1480 grams, 3 pounds 4 ounces, 92nd percentile for 28 weeks 0 days. MARIA LUISA 13.1 cm. S/D ratio 2.41 (2.60-4.00). IMPRESSION: Viable single intrauterine gestation at 29 weeks 5 days by today's composite criteria. Expected gestational age estimate based on prior sonography is 28 weeks 3 days ZULEYMA by prior sonography December 19, 2018. Electronically Signed by John Alston MD 09/29/2018 03:10 P
== END ==
LOC: M RAD 09:58
PROVIDERS: ATTEND Obstetrics & Gynecology
DX: O10.012 Pre-existing essential hypertension complicating pregnancy, second trimester (principal); Z3A.28 28 weeks gestation of pregnancy

== ENCOUNTER → 2018-10-18 | Outpatient (CLI) | payer OTHER ==
--- NOTE | 2018-10-18 18:09 | REP ---
Clinical: Growth evaluation. Comparison: 09/29/2018 . Findings: Examination demonstrates a single live intrauterine in cephalic presentation. motion is identified by technologist. Placenta is noted anterior and grade one without evidence for placenta previa or abruption. Amniotic fluid volume is normal. Cervix measures 3.4 cm in length and appears closed. No evidence for nuchal cord. Gestational age by LMP 30 weeks 5 days with ZULEYMA 12/22/2018 . Gestational age by current measurements 31 weeks 6 day with ZULEYMA is 12/14/2018 . FHR equals 124 beats per minute. BPD 7.9 cm 31 weeks 5 days HC 29.1 cm 32 weeks 0 days AC 29.2 cm 33 weeks 2 days FL 5.8 cm 30 weeks 1 day HL 5.6 cm 32 weeks 4 days HC/AC ratio 0.99 Estimated weight 1898 grams ( 73rd percentile based on age by LMP ). Amniotic fluid index: 12.4 cm (8.9 - 23.7) Umbilical cord SD ratio: 2.71 (2.50 - 3.50) Impression: Single live advanced gestation in cephalic presentation demonstrating appropriate interval growth. Electronically Signed by Adriel Titus MD 10/18/2018 06:00 P
== END ==
LOC: M RAD 16:41
PROVIDERS: ATTEND Advanced Practice Midwife
DX: O10.013 Pre-existing essential hypertension complicating pregnancy, third trimester (principal); Z3A.31 31 weeks gestation of pregnancy

== ENCOUNTER → 2018-11-03 | Outpatient (CLI) | payer OTHER ==
--- NOTE | 2018-11-03 17:35 | REP ---
OB ULTRASOUND BIOPHYSICAL PROFILE: Real-time sonographic evaluation of the gravid uterus performed. There is a single living intrauterine gestation. The estimated gestational age is reportedly 33 weeks, EDC 12/22/2018. Cervix is closed and measures 4.2 cm in length. heart rate 143 beats per minute. Amniotic fluid within normal limits. MARIA LUISA 14.3 with a normal range of 8.3 to 24.5. Biophysical profile score is 8/8. S/D ratio 2.28 is within normal range of 2.0 to 3.0. RI 0.56 is slightly below normal range of 0.59 to 0.75. position vertex. Placenta is anterior and grade 1 with no previa or abruption. Electronically Signed by Rigoberto Navarrete MD 11/05/2018 09:00 P
== END ==
LOC: M RAD 15:49
PROVIDERS: ATTEND Advanced Practice Midwife
DX: O36.8130 Decreased fetal movements, third trimester, not applicable or unspecified (principal); Z3A.33 33 weeks gestation of pregnancy

== ENCOUNTER → 2018-11-09 | Outpatient (CLI) | payer OTHER ==
--- NOTE | 2018-11-13 13:02 | REP ---
Clinical: Growth evaluation Comparison: 11/03/2018 . Findings: Examination demonstrates a single live intrauterine in cephalic presentation. motion is identified by technologist. Placenta is noted anterior and grade one without evidence for placenta previa or abruption. Amniotic fluid volume is normal. Cervix measures 3.4 cm in length and appears closed. Nuchal cord cannot be excluded. Gestational age by LMP 33 weeks 6 days with ZULEYMA 12/22/2018 . Gestational age by current measurements 33 weeks 4 days with ZULEYMA 12/24/2018 . FHR equals 136 beats per minute. BPD 8.4 cm 34 weeks 0 days HC 30.5 cm 33 weeks 6 days AC 30.6 cm 34 weeks 4 days FL 6.1 cm 31 weeks 5 days HL 5.8 cm 33 weeks 6 days HC/AC ratio 1.00 Estimated weight 2240 grams ( 41st percentile). Amniotic fluid index: 9.9 cm Umbilical cord SD ratio: 2.98 Impression: 1. A single live advanced gestation in cephalic presentation demonstrating appropriate interval growth. 2. Nuchal cord cannot be excluded. Electronically Signed by Adriel Titus MD 11/13/2018 12:54 P
== END ==
LOC: M RAD 16:48
PROVIDERS: ATTEND Advanced Practice Midwife
DX: O10.013 Pre-existing essential hypertension complicating pregnancy, third trimester (principal); Z3A.33 33 weeks gestation of pregnancy

== ENCOUNTER → 2018-11-23 | Outpatient (REF) | payer OTHER | LOC: M LAB REF 17:08 | PROVIDERS: ATTEND Advanced Practice Midwife | DX: O10.013 Pre-existing essential hypertension complicating pregnancy, third trimester (principal); Z3A.00 Weeks of gestation of pregnancy not specified ==

== ENCOUNTER → 2018-11-24 | Outpatient (CLI) | payer OTHER ==
[~2018-11-24] MED LIST changes: +ASPI81TA85 PO; +LABE200T32 PO; +PRENTAB9 PO
--- NOTE | 2018-11-25 09:58 | REP ---
OB ULTRASOUND: Real-time sonographic evaluation of the gravid uterus is performed. There is a single living intrauterine gestation. Estimated gestational age is 36 weeks 0 days, EDC . Today's measurements indicate appropriate growth. Biometry and Growth: BPD 88 mm = 35 weeks 5 days, 46th percentile HC 319 mm = 36 weeks 0 days, 49th percentile AC 333 mm = 37 weeks 2 days, 68 percentile FL 65 mm = 33 weeks 4 days, 14th percentile HC/AC ratio 0.96 within the normal range of 0.92 to 1.11. Estimated weight 2830 grams, 51st percentile. SEEN/GROSSLY UNREMARKABLE Lateral ventricles Yes Posterior fossa Yes Upper lip Yes Four-chamber heart No LVOT Yes RVOT Yes Stomach Yes Cord insertion Yes Three vessel cord Yes Kidneys Yes Bladder Yes Spine Yes Cervical length: The cervix is closed and measures approximately 2.0 cm in length. heart rate: 138 beats per minute. position: Vertex. Placenta: Anterior and grade 1 with no previa or abruption. Amniotic fluid: Within normal limits, MARIA LUISA 9.8 within normal range of 7.7 to 24.9. S/D ratio: 2.9 RI: 0.60 within normal range. Electronically Signed by Rigoberto Navarrete MD 11/27/2018 11:37 A
== END ==
LOC: M RAD 14:24
PROVIDERS: ATTEND Advanced Practice Midwife
DX: O10.013 Pre-existing essential hypertension complicating pregnancy, third trimester (principal); Z3A.36 36 weeks gestation of pregnancy

== ENCOUNTER → 2018-11-24 | Outpatient (CLI) | payer OTHER | LOC: M LAB 11:12 | PROVIDERS: ATTEND Advanced Practice Midwife | DX: O10.013 Pre-existing essential hypertension complicating pregnancy, third trimester (principal) ==

== ENCOUNTER → 2018-11-27 | Outpatient (CLI) | payer OTHER ==
[~2018-11-27] MED LIST changes: -ASPI81TA85 PO; -LABE200T32 PO; -PRENTAB9 PO
--- NOTE | 2018-11-27 14:54 | REP ---
REASON: Decreased movements. Multiple ultrasonographic images of the gravid uterus show a single living intrauterine gestation in the cephalic presentation. Doppler interrogation of the heart shows a heart rate of 140 beats per minute. The subjective amniotic fluid volume is within normal limits. The placenta is anterior and not low lying. Doppler interrogation of the umbilical artery shows an A/B ratio of 2.37. This is within the normal range. A cord resistive index was also obtained at 0.58, just outside the normal range of 0.59 to 0.75. The significance of this is doubtful. biophysical profile score is 2 for breathing, 2 for movement, 2 for tone, and 2 for amniotic fluid volume giving a sum total of 8 out of 8. IMPRESSION: Limited OB ultrasound, as described above. Electronically Signed by Lance Real DO 11/27/2018 04:48 P
== END ==
LOC: M RAD 12:15
PROVIDERS: ATTEND Advanced Practice Midwife
DX: O10.013 Pre-existing essential hypertension complicating pregnancy, third trimester (principal); O36.8131 Decreased fetal movements, third trimester, fetus 1; Z3A.00 Weeks of gestation of pregnancy not specified

== ENCOUNTER 2018-12-08 05:56 | Inpatient (IN) | payer OTHER ==
[2018-12-08] VITALS (25 sets, daily range): BP systolic 95–158; BP diastolic 51–83
[~2018-12-08] VITALS: Ht 157.5 cm; Wt 100.9 kg
[2018-12-08] MEDS ORDERED: PRENTAB9 PO (06:43)
[2018-12-08] MEDS ORDERED: ASPI81TA85 PO (06:44)
[2018-12-08] MEDS ORDERED: LABE200T32 PO (06:44)
[2018-12-08] MEDS: miSOPROStol 50 MCG 1/2 TAB (S0191) PO SCH ×2 (07:22→11:38)
[2018-12-08 07:27] LABS: HEMATOCRIT 35.7 % (36.0-47.0); HEMOGLOBIN 12.1 g/dl (12.0-15.5); MEAN CORPUSCULAR HEMOGLOBIN 31.7 pg (27.0-33.0); MEAN CORPUSCULAR HGB CONC 33.9 g/dl (32.0-36.5); MEAN CORPUSCULAR VOLUME 93.5 fl (80.0-96.0); PLATELET COUNT, AUTOMATED 258 10^3/uL (150-450); RED BLOOD COUNT 3.82 10^6/uL (4.00-5.40); WHITE BLOOD COUNT 15.1 10^3/uL (4.0-10.0)
--- NOTE | 2018-12-08 08:11 | HPE ---
DATE OF ADMISSION: 12/08/2018 A 23-year-old (G) 2, para (P) 1 female, 38-0/7 weeks gestation by 8 week ultrasound presents for labor induction. Indication for delivery less than 39 weeks is chronic hypertension. Patient has been on labetalol 200 mg twice a day during . COURSE: The patient initiated care at 8 weeks gestation 05/12/2018. Her first trimester blood pressure was 122/64. Weight was 200 pounds. She was on amlodipine to start the and switched over to labetalol at her first visit. She did not require any increase in her labetalol throughout . She start to developed moderately elevated pressures as the went on as high as 164/84. OBSTETRICAL HISTORY: 1. October 2012, 42 week vaginal delivery, 9 pound 3 ounce male . MEDICAL HISTORY: 1. Chronic hypertension. SURGICAL HISTORY: None. ALLERGIES: None. SOCIAL HISTORY: Patient's partner is involved with the patient. Does smoke cigarettes. Denies alcohol or drug use during . FAMILY HISTORY: Noncontributory. PHYSICAL EXAMINATION: Blood pressure 135/73, pulse 102. Afebrile. She is in no apparent distress. Head and neck exam is normal. Lungs: Clear. Heart: Regular rate and rhythm. Abdomen: Nontender and gravid. heart tones: Category 1. Sterile vaginal exam: 1-2 cm, 50 %, -2 posterior soft vertex. Extremities: Nontender. LABORATORY: Blood type O positive, rubella immune, RPR nonreactive. Group B strep negative. ASSESSMENT: 23-year-old, 2, para 1 female at 38 weeks gestation with chronic hypertension is admitted for labor induction. PLAN: The patient is admitted on 12/08/2018. [facility]
[2018-12-08] MEDS ORDERED: LABETALOL 200 MG TAB PO SCH ×2 (09:00→17:00)
--- NOTE | 2018-12-08 16:37 | IPNPDOC ---
Obstetrical Progress Note Date of Service Dec 08, 2018 Subjective Patient breathing and moaning through contractions. Objective Vital Signs Date Time Temp Pulse Resp B/P (MAP) Pulse Ox O2 Delivery O2 Flow Rate FiO2 12/08/18 15:12 77 18 124/60 (81) 12/08/18 14:13 97.2 Assessment Heart Rate (FHR): 120 Variability: Moderate Accelerations: Positive Decelerations: None Heart Rate Tracing: Category I Tocometer Contractions: Yes Frequency: regular Sterile Vaginal Examination Dilation: 3 cm Effacement (%): other (95%) Station: -2 Cervical Consistency: Soft Cervical Position: Anterior Postion/Presentation: Cephalic presentation Assessment and Plan EGA at Admission: 38 Status: Reassuring Anticipate: Vaginal Delivery Additional Comments Patient has receive d2 doses of cytotec and now IV Pitocin has been ordered for her IOL and to be started per order. HARJEET SUGGS CNM Dec 08, 2018 16:37
[2018-12-08] MEDS ORDERED: LR 1,000 ML IV SCH (16:45)
[2018-12-08] MEDS ORDERED: OXYTOCIN DRIP 30 UNITS in APPROPRIATE DILUENT 1 EA IV SCH ×2 (16:45→21:21)
[2018-12-08] MEDS ORDERED: PROMETHAZINE INJ 25 MG/ML VIAL (J2550) IV ONE (18:00)
[2018-12-08] MEDS ORDERED: BUTORPHANOL 2 MG/ML INJ (J0595) IV ONE (18:00)
[2018-12-08] MEDS ORDERED: MEASLES,MUMPS,RUBELLA VACCINE INJ (MMR-II) (90707) SC SCH (21:30)
[2018-12-08] MEDS ORDERED: ACETAMINOPHEN 500 MG TAB PO PRN (21:30)
[2018-12-08] MEDS ORDERED: METHYLERGONOVINE MALEATE 0.2 MG TAB PO PRN (21:30)
[2018-12-08] MEDS ORDERED: DOCUSATE SODIUM 100 MG CAP PO PRN (21:30)
[2018-12-08] MEDS ORDERED: RHOGAM 300 MCG (1500 IU) INJ (J2790) IM SCH (21:30)
[2018-12-08] MEDS ORDERED: ACETAMINOPHEN TAB 650MG DOSE (2X325MG) PO PRN (21:30)
[2018-12-08] MEDS ORDERED: ANUSOL HC CREAM 30GM TOP PRN (21:30)
[2018-12-08] MEDS ORDERED: IBUPROFEN 600 MG TAB PO PRN (21:30)
[2018-12-08] MEDS ORDERED: DIBUCAINE 1% OINTMENT 30GM TOP PRN (21:30)
[2018-12-09 03:45] VITALS: BP 123/58
[2018-12-09 04:20] VITALS: BP 119/58
[2018-12-09] MEDS: IBUPROFEN 800 MG TAB PO PRN ×2 (04:23→22:36)
[2018-12-09 04:40] VITALS: BP 126/60
[2018-12-09 06:00] VITALS: BP 107/60
[2018-12-09] MEDS: PRENATAL VITAMINS CHEWABLE TABLET PO SCH (08:15)
[2018-12-09 18:07] VITALS: BP_SYST 116; BP_SYST 124; BP_DIAS 59; BP_DIAS 66
[2018-12-10 06:00] VITALS: BP 121/57
[2018-12-10] MEDS: PRENATAL VITAMINS CHEWABLE TABLET PO SCH (08:45)
[2018-12-10] MEDS ORDERED: LABETALOL 200 MG TAB PO SCH (10:30)
[2018-12-10 11:09] VITALS: BP 121/57
--- NOTE | 2018-12-11 16:18 | DN ---
DATE OF DELIVERY: 12/08/2018 TIME: 2039 hours STATUS: Delivered. Vaginal delivery. PROVIDER: Lucero Davila CNM, RAMÍREZ ANESTHESIA: None. ESTIMATED BLOOD LOSS: 200 mL FINDINGS: Male, 2760 grams, 6 pounds, scores 9/10, chronic hypertension. Patient is a 23-year-old female who is now a 2, para 2-0-0-2 at 38 weeks gestation who presented to labor and delivery for an induction of labor due to chronic hypertension. She received two doses of Cytotec and IV Pitocin for induction of labor. She progressed to full dilation after rupturing at 1 hours with fully dilated at 2038 hours. She pushed to a living male in occiput anterior (OA) position with restitution to right occiput transverse (ROT) at 2039 hours. The anterior shoulder delivered with ease and the corpus immediately followed. The baby was placed on the maternal abdomen active and crying with stimulation. The cord was clamped times two after pulsations ceased and cut by the father of the baby. A three-vessel cord was noted. The placenta delivered spontaneously and intact at 2046 hours. Uterine hemostasis was achieved via rapid infusion of IV Pitocin and fundal massage. The vagina, perineum, and cervix was inspected and found to be intact. Mom plans to breastfeed her . She plans on naming him Ledezma. Both mom and baby are in stable condition. Both counts of sponges and instruments are correct.
== END 2018-12-10 13:30 | disposition home or self-care (01) | DRG 560 ==
LOC: M LDI 05:56 → M OBS 23:01
PROVIDERS: ADMIT Specialist; ATTEND Advanced Practice Midwife
PROC: 10E0XZZ Delivery of Products of Conception, External Approach (ICD-10-PCS; principal; 2018-12-08)
PROC: 3E0P7GC Introduction of Other Therapeutic Substance into Female Reproductive, Via Natural or Artificial Opening (ICD-10-PCS; 2018-12-08)
DX: O10.02 Pre-existing essential hypertension complicating childbirth (principal); Z3A.38 38 weeks gestation of pregnancy; Z37.0 Single live birth; O99.334 Smoking (tobacco) complicating childbirth; F17.210 Nicotine dependence, cigarettes, uncomplicated

== ENCOUNTER → 2019-04-20 | Outpatient (REF) | payer OTHER ==
[~2019-04-20] MED LIST changes: +ASPI81TA85 PO; +LABE200T32 PO; +PRENTAB9 PO
== END ==
LOC: M LAB REF 19:12
PROVIDERS: ATTEND Advanced Practice Midwife
DX: Z12.4 Encounter for screening for malignant neoplasm of cervix (principal)

== ENCOUNTER → 2019-05-24 | Outpatient (REF) | payer OTHER | LOC: M SFHCWAGY 16:52 | PROVIDERS: ATTEND Obstetrics & Gynecology | DX: Z12.4 Encounter for screening for malignant neoplasm of cervix (principal) ==

== ENCOUNTER → 2019-09-25 | Outpatient (CLI) | payer OTHER ==
[2019-09-25 10:11] LABS: BASO # 0.1 10^3/uL (0.0-0.2); BASO % 0.8 % (0.0-1.0); EOS # 0.5 10^3/uL (0.0-0.5); EOS % 4.6 % (0.0-3.0); HEMATOCRIT 41.4 % (36.0-47.0); HEMOGLOBIN 13.7 g/dl (12.0-15.5); LYMPH # 3.7 10^3/uL (1.5-5.0); LYMPH % 36.6 % (24.0-44.0); MEAN CORPUSCULAR HEMOGLOBIN 30.1 pg (27.0-33.0); MEAN CORPUSCULAR HGB CONC 33.1 g/dl (32.0-36.5); MONO # 0.7 10^3/uL (0.0-0.8); MONO % 6.7 % (0.0-5.0); NEUTROPHILS # 5.2 10^3/uL (1.5-8.5); PLATELET COUNT, AUTOMATED 303 10^3/uL (150-450); RED BLOOD COUNT 4.55 10^6/uL (4.00-5.40); WHITE BLOOD COUNT 10.1 10^3/uL (4.0-10.0)
[2019-09-25 10:47] LABS: ALBUMIN 3.9 GM/DL (3.2-5.2); ALT/SGPT 25 U/L (12-78); BILIRUBIN,TOTAL 0.7 MG/DL (0.2-1.0); BLOOD UREA NITROGEN 13 MG/DL (7-18); CALCIUM LEVEL 8.9 MG/DL (8.5-10.1); CARBON DIOXIDE LEVEL 25 MEQ/L (21-32); CHLORIDE LEVEL 110 MEQ/L (98-107); CREATININE FOR GFR 0.88 MG/DL (0.55-1.30); GLOMERULAR FILTRATION RATE > 60.0 (>60); GLUCOSE, FASTING 77 MG/DL (70-100); POTASSIUM SERUM 4.1 MEQ/L (3.5-5.1); SODIUM LEVEL 141 MEQ/L (136-145); TOTAL PROTEIN 6.9 GM/DL (6.4-8.2)
== END ==
LOC: M LAB 09:19
PROVIDERS: ATTEND Family Medicine
DX: Z00.00 Encounter for general adult medical examination without abnormal findings (principal)

== ENCOUNTER → 2020-07-16 | Outpatient (REF) | payer OTHER ==
[~2020-07-16] MED LIST changes: +AMLO1TAB24 PO; -AMLO5TAB6 PO; -ASPI81TA85 PO; +ASPI81TA86 PO; +HYDR-3490; -HYDR25TAB
== END ==
LOC: M SFHCWAGY 13:45
PROVIDERS: ATTEND Advanced Practice Midwife
DX: Z12.4 Encounter for screening for malignant neoplasm of cervix (principal)

== ENCOUNTER 2020-10-22 14:23 | Emergency (ER) | payer OTHER ==
[~2020-10-22] VITALS: Ht 157.5 cm; Wt 90.9 kg
[2020-10-22] MEDS ORDERED: NEXP1IMP SC (14:32)
[2020-10-22] MEDS ORDERED: AMLO1TAB24 PO (14:32)
[2020-10-22 16:53] LABS: HEMATOCRIT 40.9 % (36.0-47.0); HEMOGLOBIN 13.9 g/dl (12.0-15.5); MEAN CORPUSCULAR HEMOGLOBIN 31.1 pg (27.0-33.0); MEAN CORPUSCULAR VOLUME 91.5 fl (80.0-96.0); PLATELET COUNT, AUTOMATED 315 10^3/uL (150-450); RED BLOOD COUNT 4.47 10^6/uL (4.00-5.40); WHITE BLOOD COUNT 12.7 10^3/uL (4.0-10.0)
[2020-10-22 17:16] LABS: BLOOD UREA NITROGEN 7 MG/DL (7-18); CALCIUM LEVEL 9.6 MG/DL (8.5-10.1); CARBON DIOXIDE LEVEL 23 MEQ/L (21-32); CHLORIDE LEVEL 110 MEQ/L (98-107); CREATININE FOR GFR 0.72 MG/DL (0.55-1.30); GLOMERULAR FILTRATION RATE > 60.0 (>60); GLUCOSE, FASTING 76 MG/DL (70-100); SODIUM LEVEL 143 MEQ/L (136-145)
[2020-10-22 17:18] LABS: HCG, SERUM QUALITATIVE NEGATIVE (NEGATIVE)
[2020-10-22] MEDS ORDERED: METOCLOPRAMIDE INJ 10MG/2ML VIAL (J2765 PER 1) IV ONE (19:25)
[2020-10-22] MEDS ORDERED: ACETAMINOPHEN 500 MG TAB PO ONE (19:25)
[2020-10-22] MEDS ORDERED: NS 1,000 ML IV ONE (19:25)
[2020-10-22 20:49] VITALS: BP 151/70
== END 2020-10-22 21:10 | disposition home or self-care (01) ==
LOC: M ED 14:23
DX: R51.9 Headache, unspecified (principal); I10 Essential (primary) hypertension; N93.8 Other specified abnormal uterine and vaginal bleeding; F17.200 Nicotine dependence, unspecified, uncomplicated; Z91.010 Allergy to peanuts; Z91.018 Allergy to other foods; Z91.89 Other specified personal risk factors, not elsewhere classified
CPT/HCPCS: 36415; 80048; 81001; 84703; 85027; 87088; 87186; 96361; 96374; 99284; J2765

== ENCOUNTER → 2024-02-03 | Outpatient (REF) | payer OTHER ==
[~2024-02-03] MED LIST changes: +ETON68IM SC; -LABE200T32 PO; +LABE200T5 PO
[2024-02-08 16:32] LABS: HPV APTIMA Detected (Not Detected)
== END ==
LOC: M PLALAB 09:01
PROVIDERS: ATTEND Advanced Practice Midwife
DX: N92.6 Irregular menstruation, unspecified (principal); N93.0 Postcoital and contact bleeding; R87.612 Low grade squamous intraepithelial lesion on cytologic smear of cervix (LGSIL)
CPT/HCPCS: 87624; G0123

== ENCOUNTER → 2024-02-28 | Outpatient (CLI) | payer OTHER | LOC: M RAD 13:22 | PROVIDERS: ATTEND Advanced Practice Midwife | DX: N94.12 Deep dyspareunia (principal); N93.0 Postcoital and contact bleeding; N92.6 Irregular menstruation, unspecified ==

== ENCOUNTER → 2024-02-29 | Outpatient (REF) | payer OTHER | LOC: M PLALAB 13:55 | PROVIDERS: ATTEND Advanced Practice Midwife | DX: R87.613 High grade squamous intraepithelial lesion on cytologic smear of cervix (HGSIL) (principal); R87.810 Cervical high risk human papillomavirus (HPV) DNA test positive ==

== ENCOUNTER → 2024-04-10 | Outpatient (REF) | payer OTHER | LOC: M SFHCWAGY 14:55 | PROVIDERS: ATTEND Specialist | DX: R87.612 Low grade squamous intraepithelial lesion on cytologic smear of cervix (LGSIL) (principal); N85.8 Other specified noninflammatory disorders of uterus; N72 Inflammatory disease of cervix uteri ==

== ENCOUNTER → 2024-10-11 | Outpatient (REF) | payer OTHER ==
[2024-10-14 01:19] LABS: HPV APTIMA Not Detected (Not Detected)
== END ==
LOC: M PLALAB 10:55
PROVIDERS: ATTEND Advanced Practice Midwife
DX: N87.1 Moderate cervical dysplasia (principal); Z98.890 Other specified postprocedural states

== ENCOUNTER → 2024-12-27 | Outpatient (CLI) | payer OTHER ==
[~2024-12-27] MED LIST changes: +THERTAB52 PO
== END ==
LOC: M WHC 14:26
PROVIDERS: ATTEND Surgery
DX: Z80.3 Family history of malignant neoplasm of breast (principal); Z80.41 Family history of malignant neoplasm of ovary; R92.2 Inconclusive mammogram

== ENCOUNTER → 2024-12-28 | Outpatient (CLI) | payer OTHER ==
[2024-12-28 09:47] LABS: BASO # 0.1 10^3/uL (0.0-0.2); BASO % 1.0 % (0.0-1.0); EOS # 0.5 10^3/uL (0.0-0.5); EOS % 5.8 % (0.0-3.0); LYMPH # 3.5 10^3/uL (1.5-5.0); LYMPH % 40.6 % (24.0-44.0); MONO # 0.6 10^3/uL (0.0-0.8); MONO % 7.4 % (2.0-8.0); NEUTROPHILS # 3.9 10^3/uL (1.5-8.5); NEUTROPHILS % 45.0 % (36.0-66.0); PLATELET COUNT, AUTOMATED 294 10^3/uL (150-450)
[2024-12-28 10:28] LABS: CALCIUM LEVEL 9.4 MG/DL (8.5-10.1); CARBON DIOXIDE LEVEL 27 MMOL/L (20-31); CHLORIDE LEVEL 108 MMOL/L (98-107); CREATININE FOR GFR 0.89 MG/DL (0.55-1.30); GLOMERULAR FILTRATION RATE 88.8 (>60); MAGNESIUM LEVEL 2.0 MG/DL (1.8-2.4); POTASSIUM SERUM 3.9 MMOL/L (3.5-5.1); SODIUM LEVEL 144 MMOL/L (136-145)
[2024-12-28 10:31] LABS: HCG, SERUM QUALITATIVE NEGATIVE (NEGATIVE)
== END ==
LOC: M EKG 08:36
PROVIDERS: ATTEND Surgery
DX: Z01.812 Encounter for preprocedural laboratory examination (principal); Z80.3 Family history of malignant neoplasm of breast; I45.10 Unspecified right bundle-branch block

== ENCOUNTER → 2025-01-02 | Outpatient (CLI) | payer OTHER | LOC: M WHC 08:24 | PROVIDERS: ATTEND Surgery | DX: Z80.3 Family history of malignant neoplasm of breast (principal); Z80.41 Family history of malignant neoplasm of ovary | CPT/HCPCS: 76641; 77066; G0279 ==

== ENCOUNTER 2025-01-03 06:03 | Day surgery (SDC) | payer OTHER ==
[~2025-01-03] VITALS: Ht 157.5 cm; Wt 86.6 kg
[2025-01-03] MEDS ORDERED: LIDOCAINE 1% SDV 5 ML VIAL SC PRN (06:35)
[2025-01-03] MEDS ORDERED: dexmedeTOMIDine (4 MCG/ML) 200 MCG/50 ML BTL As Ordered ONE (06:53)
[2025-01-03] MEDS ORDERED: ONDANSETRON 4MG 2ML VIAL As Ordered ONE (06:53)
[2025-01-03] MEDS ORDERED: dexAMETHasone 4 MG/ML 1 ML VIAL As Ordered ONE (06:53)
[2025-01-03] MEDS ORDERED: LIDOCAINE 2% 100 MG/5 ML SDV (FOR ANES.) As Ordered ONE (06:53)
[2025-01-03] MEDS ORDERED: MIDAZOLAM INJ 2 MG/2 ML VIAL As Ordered ONE (06:57)
[2025-01-03] MEDS: LR 1,000 ML IV SCH (06:59)
[2025-01-03] MEDS: ceFAZolin SOD 2 GM IV ONCE IV ONE (07:30)
[2025-01-03] MEDS ORDERED: ACETAMINOPHEN 1000MG/100ML IV BAG As Ordered ONE (07:34)
[2025-01-03] MEDS: LIDOCAINE 1% SDV 5 ML VIAL As Ordered ONE (07:58)
[2025-01-03] MEDS ORDERED: LR 1,000 ML IV SCH (08:15)
[2025-01-03] MEDS ORDERED: HYDROMORPHONE HCL 0.5 MG/0.5 ML SYRINGE IV PRN (08:15)
[2025-01-03 09:22] VITALS: BP 128/65; TEMP 98; O2SAT 99
[2025-01-03] MEDS: ONDANSETRON 4MG 2ML VIAL IV PRN (09:24)
== END 2025-01-03 09:24 | disposition home or self-care (01) ==
LOC: M SDC 06:03
PROVIDERS: ATTEND Surgery
DX: D64.9 Anemia, unspecified (principal); Z87.891 Personal history of nicotine dependence; Z91.010 Allergy to peanuts; Z91.018 Allergy to other foods; Z91.040 Latex allergy status; K58.8 Other irritable bowel syndrome
CPT/HCPCS: 19120; 81025; 88305; J0131; J0688; J1100; J2250; J2405; J3010

== ENCOUNTER → 2025-03-21 | Outpatient (REF) ==
[~2025-03-21] MED LIST changes: -LABE200T5 PO; +LABE200T86 PO
== END ==
LOC: M LAB 11:04
PROVIDERS: ATTEND Family Medicine
DX: Z01.89 Encounter for other specified special examinations (principal)

== ENCOUNTER → 2025-04-09 | Outpatient (REF) | payer OTHER ==
[2025-04-09 16:34] LABS: ALT/SGPT 15 U/L (7.0-40); AST/SGOT 13 U/L (<34); CALCIUM LEVEL 9.4 MG/DL (8.5-10.1); CARBON DIOXIDE LEVEL 24 MMOL/L (20-31); CHLORIDE LEVEL 108 MMOL/L (98-107); CREATININE FOR GFR 0.76 MG/DL (0.55-1.30); GLOMERULAR FILTRATION RATE > 90.0 (>60); POTASSIUM SERUM 4.1 MMOL/L (3.5-5.1); SODIUM LEVEL 141 MMOL/L (136-145)
[2025-04-09 16:38] LABS: FREE T4 1.04 NG/DL (0.89-1.76)
== END ==
LOC: M LAB REF 15:33
PROVIDERS: ATTEND Student in an Organized Health Care Education/Training Program
DX: I10 Essential (primary) hypertension (principal)